=== PATIENT | male | born 1955 ===

== ENCOUNTER 2017-07-27 23:16 | Emergency (ER) | payer OTHER ==
[2017-07-28] MEDS ORDERED: Tetan/Diph/Pertus SYR(Tdap)* 0.5 ML SYR(BOOSTRIX) use SYR IM ONE (00:27)
[2017-07-28] MEDS ORDERED: Ibuprofen TAB* 800 MG PO ONE (00:27)
[2017-07-28] MEDS ORDERED: HYDROcodone/ACETAMIN 5-325 MG* 1 TAB PO ONE (00:27)
[2017-07-28] MEDS ORDERED: Amoxicillin/Clavulanate TAB* 875 MG PO ONE (00:28)
[2017-07-28] MEDS ORDERED: cefTRIAXone VIAL(*) 250 MG VIAL IM ONE (00:28)
[2017-07-28] MEDS ORDERED: Bacitracin OINTMENT* 0.5% 0.5 oz TUBE TOPICAL ONE (02:34)
[2017-07-28 02:45] VITALS: BP 145/78
--- NOTE | 2017-07-28 03:02 | ED ---
Bite Injury/Animal - HPI Summary HPI Summary: Pt here w/ miltiple bites and excoriatoins from a friend's cat. They were cat sitting when the cat got out of the house and this pt grabbed it by the collar to bring it back inside. The cat became hysterical and scartched and bit the patient about the hands, forearms and legs. Last tetanus was > 7 yrs ago. Otherwise healthy. - History of Current Complaint Chief Complaint: EDAnimalBite Stated Complaint: CAT BITE X3 Time Seen by Provider: 07/28/17 00:20 Hx Obtained From: Patient, Family/Co Op - Pain Intensity: 4 Pain Scale Used: 0-10 Numeric - Allergies/Home Medications Allergies/Adverse Reactions: Allergies Allergy/AdvReac Type Severity Reaction Status Date / Time No Known Allergies Allergy Verified 07/27/17 23:28 PMH/Surg Hx/FS Hx/Imm Hx Cardiovascular History: Reports: Hx Hypertension - Surgical History Surgery Procedure, Year, and Place: left heel surgery Infectious Disease History: No Infectious Disease History: Denies: Hx Clostridium Difficile, Hx Hepatitis, Hx Human Immunodeficiency Virus (HIV), Hx of Known/Suspected MRSA, Hx Shingles, Hx Tuberculosis, Hx Known/ Suspected VRE, Hx Known/Suspected VRSA, History Other Infectious Disease, Traveled Outside the [place] in Last 30 Days - Family History Known Family History: Positive: None - Social History Alcohol Use: None Substance Use Type: Reports: None Smoking Status (MU): Never Smoked Tobacco Physical Exam Vital Signs On Initial Exam: Initial Vitals Temp Pulse Resp BP Pulse Ox 97.8 F 89 16 141/91 100 07/27/17 23:20 07/27/17 23:20 07/27/17 23:20 07/27/17 23:20 07/27/17 23:20 Procedures - Procedure Summary Procedure Summary: multiple wounds cleaned with antiseptic - deeper wounds of the hands soaked in hibaclens nad water solutoins, irrigated with saline and cleaned again with antispetic - covered with bacitracin and wrapped with gauze wrap. Deepest area of palmar aspect of middle finger on Lt hand was loosely closed with steristrip. Hemodynamcally stable. Pt tolerated well. Diagnostics - Vital Signs Vital Signs Temp Pulse Resp BP Pulse Ox 07/28/17 02:43 97.6 F 77 20 145/78 99 07/28/17 01:51 139/82 07/28/17 01:21 149/91 07/28/17 00:51 135/78 07/28/17 00:22 90 162/78 100 07/28/17 00:21 92 98 07/27/17 23:20 97.8 F 89 16 141/91 100 - Laboratory Lab Statement: Any lab studies that have been ordered have been reviewed, and results considered in the medical decision making process. Bite Injury Course/Dx - Diagnoses Provider Diagnosis: Cat bite of multiple sites Discharge - Discharge Plan Condition: Stable Disposition: HOME Prescriptions: Amoxicillin/Clavulanate TAB* [Augmentin TAB 875*] 875 mg PO BID #20 tab HYDROcodone/ACETAMIN 5-325 MG* [[place] 5-325 TAB*] 1 tab PO Q6H PRN #15 tab MDD 4 PRN Reason: Pain Patient Education Materials: Animal Bite (ED) Forms: *Work Release Referrals: Zayra Garcia MD [Primary Care Provider] - Additional Instructions: Soak hands in a soapy soak 2 x a day. Rinse well and patent dry with a clean cloth. You may apply triple antibiotic ointment to superficial abrasions, lacerations, puncture wounds and dress with nonstick gauze dressing. Keep extremities elevated and take ibuprofen 800 mg every 8 hours with food as needed for pain or swelling. You have been given additional pain med, [place]. This is a narcotic and may cause drowsiness as well as constipation. Only use if pain is interfering with sleep or daily function. Additionally, you may apply epsom salt compresses or soak in epsom salt to reduce swelling and allow wounds to drain. Follow-up at Urgent Care Sunday for recheck of wounds. Then follow-up later this week with PCP if you need more time of out of work, wounds are not healing well, etc. *If you develops fever, chills, nausea, vomiting, redness, swelling, streaking, purulent drainage, stiffness of joints, return to the emergency department. - Billing Disposition and Condition Condition: STABLE Disposition: HOME
--- NOTE | 2017-07-28 08:36 | RAD ---
HISTORY: Finger laceration, history of penetrating trauma, cat bite COMPARISONS: None VIEWS: 4, Frontal, lateral, and oblique views of the hands bilaterally FINDINGS: BONE DENSITY: Normal. BONES: There is no displaced fracture. There is no appreciable erosion or periosteal reaction. JOINTS: There is no arthropathy. ALIGNMENT: There is no dislocation. SOFT TISSUES: Unremarkable. OTHER FINDINGS: None. IMPRESSION: NO ACUTE OSSEOUS INJURY BILATERALLY. IF SYMPTOMS PERSIST, RECOMMEND REPEAT IMAGING.
== END 2017-07-28 02:43 | disposition home or self-care (01) ==
LOC: ED 23:16
DX: S61.452A Open bite of left hand, initial encounter (principal); S61.451A Open bite of right hand, initial encounter; S51.852A Open bite of left forearm, initial encounter; S51.851A Open bite of right forearm, initial encounter; S81.852A Open bite, left lower leg, initial encounter; S81.851A Open bite, right lower leg, initial encounter; W55.01XA Bitten by cat, initial encounter; W55.03XA Scratched by cat, initial encounter; Y93.K9 Activity, other involving animal care; Y92.9 Unspecified place or not applicable; Z23 Encounter for immunization
CPT/HCPCS: 90471; 90715; 96372; 99283; A9270-GY; J0696

== ENCOUNTER 2017-07-30 11:14 | Emergency (ER) | payer OTHER ==
[2017-07-30 11:47] VITALS: BP 143/78
--- NOTE | 2017-07-30 11:52 | UC ---
Skin Complaint HPI - HPI Summary HPI Summary: 62 yo male presents with diffuse cat scratches. He tells me that two days ago he was seen in the ED for this. That day he was cat sitting for a friend and the cat ran outside. He tried to grab the cat to bring it back in the house when the cat attacked pt and he sustained multiple diffuse scratches and a few bites to the hand. At the ED his tetanus was updated and he was placed on augmentin and advised to f/u in two days. He is here today for f/u. He is feeling better and only has mild pain and swelling - mostly in the right hand. Denies fever/chills. He is still off work and is going to see his PCP in 2 days for another f/u and to get cleared for work. - History of Current Complaint Chief Complaint: UCBiteInjury Time Seen by Provider: 07/30/17 11:52 Stated Complaint: FOLLOW-UP VISIT ANIMAL BITE Hx Obtained From: Patient Onset/Duration: Sudden Onset Skin Exposure Onset/Duration: Days Ago Onset Severity: Severe Current Severity: Mild Pain Intensity: 4 Pain Scale Used: 0-10 Numeric - Allergy/Home Medications Allergies/Adverse Reactions: Allergies Allergy/AdvReac Type Severity Reaction Status Date / Time No Known Allergies Allergy Verified 07/30/17 11:43 Review of Systems Constitutional: Negative Skin: Other - Cat scratches and bite Respiratory: Negative Cardiovascular: Negative Gastrointestinal: Negative Neurovascular: Negative Neurological: Negative Psychological: Negative All Other Systems Reviewed And Are Negative: Yes PMH/Surg Hx/FS Hx/Imm Hx - Additional Past Medical History Additional PMH: None Previously Healthy: Yes - Surgical History Surgical History: Yes Surgery Procedure, Year, and Place: left heel surgery - Family History Known Family History: Positive: None - Social History Occupation: Employed Full-time Lives: With Family Alcohol Use: None Substance Use Type: None Smoking Status (MU): Never Smoked Tobacco Physical Exam - Summary Physical Exam Summary: GENERAL: NAD. WDWN. No pain distress. SKIN: Multiple superficial cat scratches to all extremities ranging from ~1.0cm to ~15.0cm in length. All appearing to be healing well and have scabbed. Left finger scratch was the deepest and appears to be healing well. No surrounding erythema, warmth, streaking, bleeding, or drainage from any of the sites. NECK: Supple. Nontender. No lymphadenopathy. CHEST: No accessory muscle use. Breathing comfortably and in no distress. CV: RRR. Without m/r/g. NEURO: Alert. CN II-XII grossly intact. PSYCH: Age appropriate behavior. Triage Information Reviewed: Yes Vital Signs: Initial Vital Signs Temp 98.0 F 07/30/17 11:42 Pulse 71 07/30/17 11:42 Resp 18 07/30/17 11:42 BP 143/78 07/30/17 11:42 Pulse Ox 100 07/30/17 11:42 Course/Dx - Course Course Of Treatment: Wounds healing well. Continue augmentin. Keep f/u with PCP in 2 days. - Diagnoses Provider Diagnoses: Cat scratch. Cat bite Discharge - Sign-Out/Discharge Documenting (check all that apply): Discharge/Admit/Transfer - Discharge Plan Condition: Stable Disposition: HOME Referrals: Zayra Garcia MD [Primary Care Provider] - Additional Instructions: If you develop a fever, shortness of breath, chest pain, new or worsening symptoms - please call your PCP or go to the ED. - Billing Disposition and Condition Condition: STABLE Disposition: HOME
== END 2017-07-30 12:07 | disposition home or self-care (01) ==
LOC: UCEAST 11:14
DX: S60.41 Abrasion of fingers (principal); S60.511D Abrasion of right hand, subsequent encounter; W55.03XD Scratched by cat, subsequent encounter
CPT/HCPCS: 99211; G0463